=== PATIENT | female | born 1990 | race Two or more races ===

== ENCOUNTER 2022-12-13 17:53 | Emergency (ER) | payer MEDICAID, OTHER ==
[~2022-12-13] VITALS: Ht 162.6 cm; Wt 86.2 kg
[2022-12-13 18:46] VITALS: BP 125/75
[2022-12-13] MEDS ORDERED: AMOX-277 PO (19:51)
== END 2022-12-13 20:18 | disposition home or self-care (01) ==
LOC: ER 17:53
DX: J06.9 Acute upper respiratory infection, unspecified (principal); R51.9 Headache, unspecified; F17.210 Nicotine dependence, cigarettes, uncomplicated
CPT/HCPCS: 36415; 87804

== ENCOUNTER 2022-12-31 08:28 | Emergency (ER) | payer MEDICAID ==
[~2022-12-31] VITALS: Ht 152.4 cm; Wt 82.0 kg
[~2022-12-31 08:28] MED LIST: AMOX-277 PO
[2022-12-31 09:05] VITALS: BP 120/74
== END 2022-12-31 09:49 | disposition home or self-care (01) ==
LOC: ER 08:28
DX: K04.7 Periapical abscess without sinus (principal); F17.210 Nicotine dependence, cigarettes, uncomplicated; Z88.1 Allergy status to other antibiotic agents